=== PATIENT | female | born 2000 | race Caucasian/White ===

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

== ENCOUNTER 2019-06-23 10:09 | Emergency (ER) | payer OTHER ==
[2019-06-23] MEDS ORDERED: BUPROPION150 M4 PO (10:18)
[2019-06-23] MEDS ORDERED: LEVOTHYROXIN50 MCG PO (10:19)
[2019-06-23] MEDS ORDERED: TRAMADOL HCL50 MG PO (10:26)
[2019-06-23] MEDS ORDERED: DOXYCYCL HYC100 MG PO (10:26)
[2019-06-23 10:32] VITALS: BP 163/95
== END 2019-06-23 10:32 | disposition home or self-care (01) ==
LOC: ED 10:09
DX: N61.1 Abscess of the breast and nipple (principal); N61.0 Mastitis without abscess

== ENCOUNTER 2019-06-25 | Observation (INO) | payer OTHER ==
[~2019-06-25] MED LIST changes: +BUPROPION150 M4 PO; +DOXYCYCL HYC100 MG PO; +LEVOTHYROXIN50 MCG PO; +TRAMADOL HCL50 MG PO
[2019-06-25] MEDS ORDERED: VITAMIN D320 MCG PO (13:58)
[2019-06-25] MEDS ORDERED: CELEBREX100 M1 PO (13:58)
[2019-06-25 15:00] VITALS: BP 153/79
--- NOTE | 2019-06-25 18:21 | NUR ---
PT MEDICATED FOR 9/10 PAIN TO LEFT BREAST, THROBBING. PT AWARE OF NPO AFTER MN STATUS, LAB WORK IN AM, 1000 PICKUP TIME FROM OR.
[2019-06-25 18:50] VITALS: BP 136/90
--- NOTE | 2019-06-25 20:00 | NUR ---
PATIENT EDUCATED ON FALL PRECAUTION. PT WITH STEADY GAIT AND ABULATORY. PT ATTACHED TO IV; PT ADVISED TO CALL FOR ASSISTANCE WHEN AMBULATING.
[2019-06-26] VITALS (7 sets, daily range): BP systolic 99–142; BP diastolic 49–88
--- NOTE | 2019-06-26 | NUR ---
MEDICATION ADMINISTERED FOR PAIN LEVEL OF 7/10. PT EDUCATED ON MEDICATION DOSE, USE AND FREQUENCY. PATIENT VERBALIZED UNDERSTANDING. CASINO BEVERAGE SERVER WILL REASSESS IN 30 TO 40 MINUTES FOR EFFECTIVENESS
--- NOTE | 2019-06-26 03:53 | NUR ---
PATIENT RESTING COMFORTABLY. EYES CLOSED RESPIRATION EVEN AND UNLABORED. NO S/S OF DISTRESS. SAND SYSTEM OPERATOR WILL CONTINUE TO MONITOR
[2019-06-26 05:05] LABS: HEMATOCRIT 35.3 % (37.0-47.0); HEMOGLOBIN 11.6 g/dl (12.0-16.0); IMMATURE GRANULOCYTES 0.4 % (0.0-5.0); MEAN CELL VOLUME 91.7 fL CALC (80.0-100.0); MEAN CORPUSCULAR HGB 30.1 pG CALC (26.0-32.0); MEAN CORPUSCULAR HGB CONC 32.9 g/L CALC (32.0-36.0); NEUT# 6.61 thou/uL (2.00-7.15); RED BLOOD COUNT 3.85 mill/uL (4.20-5.60); RED CELL DISTRI WIDTH 12.6 % (11.5-15.5)
[2019-06-26 05:09] LABS: ALKALINE PHOSPHATASE 90 u/l (38-126); ANION GAP 12 (6-22 (CALC)); BILIRUBIN, TOTAL 0.4 mg/dL (0.0-1.4); BUN 17 mg/dL (7-17); BUN/CREATININE RATIO 17 (12-20 (CALC)); CARBON DIOXIDE 24 mmol/l (22-30); CHLORIDE 105 mmol/l (95-108); GFR > 60 ML/MIN (>=60 (CALC)); GFR FOR AFR.AMER. > 60 ML/MIN (>=60 (CALC)); POTASSIUM 3.7 mmol/l (3.5-5.1); SGOT/AST 21 u/l (14-36); SODIUM 138 mmol/l (137-146); TOTAL PROTEIN 6.3 g/dL (6.3-8.2)
[2019-06-26 05:13] LABS: ALBUMIN 3.2 g/dL (3.2-5.0)
--- NOTE | 2019-06-26 10:03 | NUR ---
PT AT REST IN THE BED, WAITS FOR PROCEDURE. PT MEDICATED FOR PAIN AND LATER NAUSEA. FAMILY IN ROOM.
--- NOTE | 2019-06-26 13:39 | NUR ---
PT RETURNED FROM OR, AWAKE AND ALERT. PT ABLE TO TOLERATE SOLIDS, MEAL TRAY ORDERED. NO REPORT OF SIGNIFICANT PAIN. ABSCESS SITE IS COVERED WITH FOAM TAPE, NO BLEEDING OR OOZING NOTED. PT ADVISED TO CALL IF PAIN BEGINS TO INCREASE IN INTENSITY. FAMILY AT BEDSIDE.
--- NOTE | 2019-06-26 16:17 | NUR ---
SCDs REMOVED PER PT UP AND AROUND ROOM. NO COMPLAINT OF PAIN OR OTHERWISE. PT TOLERATED MEAL WELL. FAMILY REMAINS IN ROOM.
--- NOTE | 2019-06-26 18:55 | NUR ---
REPORT RECEIVED FROM JANINA COSTA. PT RESTING IN BED. RESPIRATIONS EVEN AND UNLABORED ON RA. NO S/S OF DISTRESS AT THIS TIME. SAFETY PRECAUTIONS IN PLACE. WILL CONTINUE TO MONITOR.
--- NOTE | 2019-06-26 22:01 | NUR ---
PT RESTING IN BED ALERT AND ORIENTED, FRIEND AT BEDSIDE. RESPIRATIONS EVEN AND UNLABORED ON RA. PEDAL PULSES WEAK. PT REPORTS PAIN BEING A 7/10 ON THE PAIN SCALE. PT MEDICATED PER EMAR ORDERS. DRESSING CHANGED PER ORDERS. PT TOLERATED WELL. SAFETY PRECAUTIONS IN PLACE. WILL CONTINUE TO MONITOR.
--- NOTE | 2019-06-27 00:55 | NUR ---
PT RESTING IN BED. FRIEND AT BEDSIDE. NO S/S OF DISTRESS AT THIS TIME. SAFETY PRECAUTIONS IN PLACE. WILL CONTINUE TO MONITOR.
[2019-06-27 03:53] VITALS: BP 108/63
--- NOTE | 2019-06-27 03:58 | NUR ---
PT RESTING IN BED. RESPIRATIONS EVEN AND UNLABORED. NO S/S OF DISRESS AT THIS TIME. SAFETY PRECAUTION IN PLACE, WILL CONTINUE TO MONITOR.
[2019-06-27 07:35] VITALS: BP 122/84
--- NOTE | 2019-06-27 07:35 | NUR ---
PT SITTING IN BED WITH BOYFRIEND AT BEDSIDE. A&O X3. PT C/O NAUSEA, PT REQUESTED FRANCESCA BRIANNA AND CRACKERS TO HELP SUBSIDE SYMPTOMS. BREAST DRESSING CDI WITH NO SHADOWING PRESENT. REDNESS NOTED ON LT BREAST, STATED IT WAS CAUSED BY PREVIOUS SURGICAL TAPE THAT WAS APPLIED. NO OTHER NEEDS AT THIS TIME. DISCUSSED POC. CALL LIGHT IN REACH. CONTINUE TO MONITOR.
--- NOTE | 2019-06-27 08:34 | NUR ---
CURRENT EPISODE OF VOMITING PRESENT. EXPLAINED TO THE PT THAT MD WOULD BE NOTIFIED.
[2019-06-27 11:07] VITALS: BP 113/70
--- NOTE | 2019-06-27 13:33 | NUR ---
AT BEDSIDE TO DISCUSS POC.
[2019-06-27 14:55] VITALS: BP 131/74
--- NOTE | 2019-06-27 15:20 | NUR ---
PT SITTING IN BED WITH FAMILY AT BEDSIDE, PT STILL REPORTING SOME NAUSEA BUT NOT BAD IT WAS. EXPLAINED TO PT THAT SHE WOULD BE GETTING ULTRAM AHEAD OF TIME TO CONTROL HER PAIN BEFORE WE DO THE DRESSING CHANGE. PT VERBALIZED UNDERSTANDING. CALL LIGHT IN REACH. CONTINUE TO MONITOR.
--- NOTE | 2019-06-27 16:06 | NUR ---
DRESSING CHANGE COMPLETED, PT TOLERATED WELL.
[2019-06-27 19:00] VITALS: BP 112/67
--- NOTE | 2019-06-27 19:02 | NUR ---
REPORT RECEIVED FROM ISAAK NOGUEIRA. PT RESTING IN BED. NO S/S OF DISTRESS AT THIS TIME. SAFETY PRECAUTIONS IN PLACE. WILL CONTINUE TO MONITOR.
--- NOTE | 2019-06-27 21:40 | NUR ---
PT RESTING IN BED ALERT AND ORIENTED, FRIEND AT BEDSIDE. RESPIRATIONS EVEN AND UNLABORED ON RA. LUNGS SOUND DIMINISHED, PEDAL PULSES WEAK. PT REPORTS PAIN BEING A 7/10, PT MEDICATED PER EMAR ORDERS. PT EDUCATED ON PLAN OF CARE. SAFETY PRECAUTIONS IN PLACE. WILL CONTINUE TO MONITOR.
--- NOTE | 2019-06-28 00:20 | NUR ---
PT SITTING UP IN BED WATCHING TV WITH FRIEND. NO S/S OF DISTRESS AT THIS TIME. SAFETY PRECAUTIONS IN PLACE.
[2019-06-28 04:25] VITALS: BP 128/77
--- NOTE | 2019-06-28 04:46 | NUR ---
PT RESTING IN BED WITH EYES CLOSED, NO S/S OF DISTRESS AT THIS TIME.
--- NOTE | 2019-06-28 07:00 | NUR ---
SHIFT CHANGE REPORT, PT AWAKE ALERT AND ORIENTED SITTING UP IN BED, NO C/O DISCOMFORT AT THIS TIME, IVF INFUSING, CALL OLGUIN IN REACH.
[2019-06-28 08:09] VITALS: BP 123/87
[2019-06-28] MEDS ORDERED: BACTRIM DS1 TAB PO (11:33)
[2019-06-28] MEDS ORDERED: TRAMADOL HCL50 MG PO (11:33)
--- NOTE | 2019-06-28 14:14 | NUR ---
DRESSING CHANGED-OLD DRESSING REMOVED FROM SURGICAL LEFT BREAST, WOUND CLEANED WITH 0.9NS, DAMP TO DRY DRESSING APPLIED ORDERED AND SECURED WITH TAPE.
--- NOTE | 2019-06-28 14:18 | NUR ---
Discharge instructions given. Patient verbalizes understanding of same. Discharged in stable condition via Ambulatory to Home with family. All belongings sent with pt.
== END 2019-06-28 14:15 | disposition home or self-care (01) ==
PROVIDERS: Nurse Anesthetist, Certified Registered; ADMIT Surgery
DX: N61.1 Abscess of the breast and nipple (principal)
CPT/HCPCS: G0378; G0379; J0131